=== PATIENT | female | born 1975 | race Caucasian/White ===

== ENCOUNTER → 2016-04-28 | Outpatient (CLI) | payer OTHER ==
--- NOTE | ~2016-04-28 | US6 ---
[facility] A Service of [facility] & [facility] RADIOLOGY TEXT RESULTS PATIENT: ANTONIO URBANO LOCATION: CGUS : 79 UNIT #: [id number] AGE: [address]: Jeremie Garsia MD SEX: F ORDER DR: [id number] [facility] [address] [place], [place] [address] [id number] O MR#: [id number] Acc #: [id number] NAME: ANTONIO URBANO : 1975 SEX: F STUDY DATE/TIME: 04/28/2016 15:07 UNIT: CGUS ROOM: STUDY DESCRIPTION: US Abdominal Limited Attending Physician: Jeremie Garsia M.D. Referring Physician: Jeremie Garsia M.D. Ordering Physician: Jeremie Garsia M.D. Primary Care Physician: No Primary Care Physician MEDICAL IMAGING REPORT This report is preliminary unless electronic signature is present EXAM Abdominal ultrasound HISTORY Pain severe abdomen pain for 4 days. Worsening last night. No abdominal surgery. FINDINGS Real-time ultrasonography of the right upper quadrant performed. No prior studies for comparison. Visualized portions of the pancreas unremarkable but pancreatic tail largely obscured by bowel gas artifact. The liver is normal in contour and echotexture. Normal in size measuring 13.5 cm in craniocaudal extent. No suspicious focal hepatic parenchymal abnormality. Portal vein patent with normal direction of flow. Right kidney measures 8.9 cm in greatest length. No hydronephrosis or nephrolithiasis. No cystic or solid mass lesion and no perinephric fluid collection. The gallbladder is normal in volume. 5-6 mm nonshadowing hyperdense focus along antidependent wall. Appearance likely represents a gallbladder wall polyp. Given size and lack of prior studies for comparison. 6-month ultrasound followup recommended. No pericholecystic fluid. No gallstones. The gallbladder wall measures on the order of 2 mm in thickness. There may be a trace amount of gallbladder sludge present. No discrete calculi and no pericholecystic fluid. No intra or extrahepatic biliary ductal dilatation. Common duct measures about 3.3 mm in diameter. IMPRESSION 1. Liver and right kidney are normal in appearance. 2. There is no evidence of acute cholecystitis. No gallstones are seen. There may be a minimal amount of gallbladder sludge present. There is an echogenic 5-6 mm non mobile focus along the antidependent wall of the gallbladder most consistent with gallbladder wall polyp. In the absence of prior studies demonstrating prolonged stability, 6-month ultrasound followup would be recommended. [facility] A Service of [facility] RADIOLOGY TEXT RESULTS PATIENT: ANTONIO URBANO LOCATION: CGUS : 77 UNIT #: [id number] AGE: [address]: Jeremie Garsia MD SEX: F ORDER DR: 3. The visualized portions of pancreas are unremarkable but much of the pancreatic tail is obscured by bowel gas artifact. Pancreas could be further evaluated with a CT if it would assist in management. Dictated by... Carlos Townsend M.D. THIS IS AN ELECTRONICALLY VERIFIED REPORT Carlos Townsend M.D. at 05/08/2016 2:12 PM ORLY/migel TD: 04/29/2016 05:19 JOB #: [id number] MEDICAL IMAGING REPORT COPY
== END | disposition home or self-care (01) ==
LOC: CGUS 14:49
DX: R10.9 Unspecified abdominal pain (principal); R11.2 Nausea with vomiting, unspecified
CPT/HCPCS: 76705